=== PATIENT | female | born 1950 ===

== ENCOUNTER 2017-11-30 10:17 | Outpatient (CLI) | payer OTHER ==
[~2017-11-30 10:17] MED LIST: AMLODIPINE BESYL5 MG PO; CLARINEX2.5 MG/5 M PO; NASONEX17 GM NS; SINGULAIR10 MG PO
== END 2017-11-30 10:49 | disposition home or self-care (01) ==
LOC: RAD 501 10:17
DX: Z96.652 Presence of left artificial knee joint (principal)

== ENCOUNTER 2017-12-20 08:36 | Outpatient (CLI) | payer OTHER | END 2017-12-20 08:40 | disposition home or self-care (01) | LOC: MAMO-SONO 08:36 | DX: Z12.31 Encounter for screening mammogram for malignant neoplasm of breast (principal); Z87.898 Personal history of other specified conditions; N64.4 Mastodynia ==

== ENCOUNTER 2018-06-13 08:19 | Outpatient (CLI) | payer OTHER | END 2018-06-13 08:28 | disposition home or self-care (01) | LOC: MAMO-SONO 08:19 | DX: Z12.31 Encounter for screening mammogram for malignant neoplasm of breast (principal); R92.1 Mammographic calcification found on diagnostic imaging of breast ==

== ENCOUNTER 2018-10-26 08:21 | Outpatient (CLI) | payer OTHER | END 2018-10-26 12:48 | disposition home or self-care (01) | LOC: SONOGRAMA 08:21 | DX: E03.8 Other specified hypothyroidism (principal); E04.1 Nontoxic single thyroid nodule ==

== ENCOUNTER 2018-12-20 07:03 | Outpatient (CLI) | payer OTHER | END 2018-12-20 07:07 | disposition home or self-care (01) | LOC: MAMO-SONO 07:03 | DX: Z12.31 Encounter for screening mammogram for malignant neoplasm of breast (principal); R92.0 Mammographic microcalcification found on diagnostic imaging of breast; N64.4 Mastodynia ==

== ENCOUNTER 2019-01-07 08:30 | Outpatient (CLI) | payer OTHER | END 2019-01-07 08:36 | disposition home or self-care (01) | LOC: LAB 08:30 | DX: E88.89 Other specified metabolic disorders (principal); Z96.653 Presence of artificial knee joint, bilateral; I11.9 Hypertensive heart disease without heart failure; E55.9 Vitamin D deficiency, unspecified; K21.9 Gastro-esophageal reflux disease without esophagitis; E66.09 Other obesity due to excess calories; E78.49 Other hyperlipidemia ==

== ENCOUNTER 2019-01-10 08:10 | Outpatient (CLI) | payer OTHER | END 2019-01-10 08:24 | disposition home or self-care (01) | LOC: LAB 08:10 | DX: E78.49 Other hyperlipidemia (principal); E88.89 Other specified metabolic disorders; Z96.653 Presence of artificial knee joint, bilateral; I11.9 Hypertensive heart disease without heart failure; E55.9 Vitamin D deficiency, unspecified; K21.9 Gastro-esophageal reflux disease without esophagitis; E66.09 Other obesity due to excess calories ==

== ENCOUNTER 2020-07-26 10:04 | Outpatient (CLI) | payer OTHER | END 2020-07-26 10:17 | disposition home or self-care (01) | LOC: MAMO-SONO 10:04 | PROVIDERS: ATTEND Obstetrics & Gynecology | DX: N64.4 Mastodynia (principal); R92.0 Mammographic microcalcification found on diagnostic imaging of breast; Z12.31 Encounter for screening mammogram for malignant neoplasm of breast ==

== ENCOUNTER 2021-08-11 10:40 | Outpatient (CLI) | payer OTHER | END 2021-08-11 10:50 | disposition home or self-care (01) | LOC: MAMO-SONO 10:40 | DX: N60.01 Solitary cyst of right breast (principal); R92.0 Mammographic microcalcification found on diagnostic imaging of breast; D64.89 Other specified anemias ==

== ENCOUNTER 2023-05-24 08:26 | Outpatient (CLI) | payer OTHER | END 2023-05-24 08:28 | disposition home or self-care (01) | LOC: SONOGRAMA 08:26 | PROVIDERS: ATTEND Pathology Anatomic Pathology & Clinical Pathology | DX: D34 Benign neoplasm of thyroid gland (principal); E04.9 Nontoxic goiter, unspecified ==

== ENCOUNTER → 2024-01-17 | Outpatient (CLI) | payer OTHER | END | disposition home or self-care (01) | LOC: SONOGRAMA 10:14 | PROVIDERS: ATTEND Pathology Anatomic Pathology & Clinical Pathology | DX: D34 Benign neoplasm of thyroid gland (principal); E07.89 Other specified disorders of thyroid; E04.1 Nontoxic single thyroid nodule ==